=== PATIENT | female | born 1960 | race African-American/Black ===

== ENCOUNTER 2020-07-09 08:54 | Outpatient (RCR) | payer OTHER, SELFPAY ==
--- NOTE | 2020-07-09 10:38 | PCPTNOTE ---
Patient:Jennifer Peraza Date of :1960 Power wheelchair seating assessment Thank you for referring this [facility]. The patient has been evaluated for wheelchair seating and recommendations have been made, with assistance of the DME provider present. The findings have been scanned into the patient's EMR. Please review, sign, date and return this recognition of care provided. I agree with and certify that the following plan for DME equipment is medically necessary. Physician Signature date
== END 2020-09-24 08:08 | disposition home or self-care (01) ==
LOC: ANHPT 08:54
DX: M21.372 Foot drop, left foot (principal); M17.0 Bilateral primary osteoarthritis of knee; M22.41 Chondromalacia patellae, right knee; M22.42 Chondromalacia patellae, left knee; G56.03 Carpal tunnel syndrome, bilateral upper limbs; E66.9 Obesity, unspecified; R29.6 Repeated falls; Z91.81 History of falling
CPT/HCPCS: 97163